=== PATIENT | male | born 1980 | race African-American/Black ===

== ENCOUNTER → 2018-04-01 14:00 | Emergency (ER) | payer BC, OTHER ==
[~2018-04-01 14:00] MED LIST: Ibuprofen TAB* 400 MG PO ONE
--- NOTE | 2018-04-01 15:16 | ED ---
HPI Chest Pain - HPI Summary HPI Summary: This patient is a 37 year old M presenting to [facility] with a chief complaint of sharp right anterior CP since this AM. He endorses SOB secondary to pain, pain radiation to his back, mildly productive cough (sx started and worsened with cough), and sx worse with inspiration. Pt denies fever, rash, and smoking cigarettes. PMHx asthma; rx PRN albuterol. - History of Current Complaint Chief Complaint: EDChestWallPain Time Seen by Provider: 04/01/18 15:00 Hx Obtained From: Patient Onset/Duration: Started Hours Ago, Atraumatic, Still Present Timing: Constant, Lasting Hours Initial Severity: Moderate Current Severity: Moderate Pain Intensity: 7 Pain Scale Used: 0-10 Numeric Chest Pain Location: Right Anterior Chest Pain Radiates: Yes Chest Pain Radiates To:: Back Character: Cough, Productive, Dyspnea at Rest, Sharp/Stabbing Aggravating Factor(s): Deep Breaths, Other: - cough Alleviating Factor(s): Nothing Associated Signs and Symptoms: Positive: Chest Pain, Shortness of Breath, Productive Cough, Back Pain. Negative: Fever - Allergy/Home Medications Allergies/Adverse Reactions: Allergies Allergy/AdvReac Type Severity Reaction Status Date / Time No Known Allergies Allergy Verified 04/01/18 14:32 Home Medications: Home Medications Albuterol inh POWDER (NF) [Proair Respiclick] 1 puff INH DAILY 04/01/18 [ History Confirmed 04/01/18] PMH/Surg Hx/FS Hx/Imm Hx Cardiovascular History: Denies: Hx Pacemaker/ICD Respiratory History: Reports: Hx Asthma GI History: Denies: Hx Ileostomy History: Denies: Hx Dialysis Musculoskeletal History: Denies: Hx Osteoporosis Sensory History: Denies: Hx Legally Blind, Hx Deafness Opthamlomology History: Denies: Hx Legally Blind EENT History: Denies: Hx Deafness Neurological History: Denies: Hx CVA Psychiatric History: Denies: Hx Autism, Hx Schizophrenia - Immunization History Immunizations Up to Date: Yes Infectious Disease History: No Infectious Disease History: Denies: Traveled Outside the [place] in Last 30 Days - Family History Known Family History: Positive: Cardiac Disease, Hypertension, Diabetes - Social History Occupation: Employed Full-time Lives: With Family Alcohol Use: Occasionally Hx Substance Use: Yes Substance Use Type: Reports: Marijuana Substance Use Comment - Amount & Last Used: used 2 days ago Hx Tobacco Use: No Smoking Status (MU): Never Smoked Tobacco Review of Systems Negative: Fever Positive: Chest Pain Positive: Shortness Of Breath, Cough Positive: no symptoms reported Positive: Myalgia - back pain Negative: Rash All Other Systems Reviewed And Are Negative: Yes Physical Exam - Summary Physical Exam Summary: Appearance: Well appearing, no pain distress Skin: warm, dry, reflects adequate perfusion Head/face: normal Eyes: EOMI, BERNA ENT: normal Neck: supple, non-tender Respiratory: CTA, breath sounds present Cardiovascular: RRR, pulses symmetrical Abdomen: non-tender, soft Bowel: present Musculoskeletal: tenderness in right anterior chest, strength/ROM intact Neuro: normal, sensory motor intact, A&Ox3 Triage Information Reviewed: Yes Vital Signs On Initial Exam: Initial Vitals Temp Pulse Resp BP Pulse Ox 97.7 F 74 18 137/84 96 04/01/18 14:01 04/01/18 14:01 04/01/18 14:01 04/01/18 14:01 04/01/18 14:01 Vital Signs Reviewed: Yes Diagnostics - Vital Signs Vital Signs Temp Pulse Resp BP Pulse Ox 04/01/18 14:14 69 147/83 96 04/01/18 14:01 97.7 F 74 18 137/84 96 - Laboratory Result Diagrams: 04/01/18 15:19 04/01/18 15:19 Lab Statement: Any lab studies that have been ordered have been reviewed, and results considered in the medical decision making process. - Radiology CXR Xray Interpretation: No Acute Changes Radiology Interpretation Completed By: Radiologist - No active disease. Dr. Castro has reviewed this report. - EKG 1406 Cardiac Rate: NL - 64 EKG Rhythm: Sinus Rhythm ST Segment: Normal Ectopy: None EKG Interpretation: No acute changes. Re-Evaluation - Re-Evaluation First Eval Re-Evaluation Time: 17:14 Change: Improved Comment: Pt feels better, wants discharge. Doesn't want to stay for 2nd troponin , advised to follow up with PCP for an outpatient stress test. Chest Pain Course/Dx - Course Course Of Treatment: A 37-year-old M presents to the ED with a CC of sharp right anterior CP since this AM. (+) pain with inspiration, pain with cough, mildly productive cough. PMHx asthma. A CXR was (-). An EKG reveals NSR at 64 BPM with no acute changes. In the ED course, pt was given ibuprofen. - Diagnoses Provider Diagnoses: Atypical chest pain Discharge - Sign-Out/Discharge Documenting (check all that apply): Patient Departure - discharge - Discharge Plan Condition: Stable Disposition: HOME Patient Education Materials: Chest Pain (ED) Referrals: [facility] [Provider Group] Additional Instructions: Return to the emergency department for any new or worsening symptoms. Follow up with a primary care physician for an outpatient stress test. - Attestation Statements Document Initiated by Scribe: Yes Documenting Scribe: Johnny Mora Provider For Whom Scribe is Documenting (Include Credential): Dr. Jimi Castro MD Scribe Attestation: Johnny Humphrey, scribed for Dr. Jimi Castro MD on 04/01/18 at 1713.
[2018-04-01 15:32] LABS: ABS Basophils 0.1 10^3/ul (0-0.2); ABS Eosinophils 0.3 10^3/ul (0-0.6); ABS Lymphocytes 2.3 10^3/ul (1.0-4.8); ABS Monocytes 0.4 10^3/ul (0-0.8); ABS Neutrophils 4.3 10^3/ul (1.5-7.7); ABS Nucleated RBC 0 10^3/ul; Eosinophil % 4.5 % (0-6); Hematocrit 41 % (42-52); Lymphocyte % 31.4 % (25-47); Mean Corpuscular HGB Conc 32 g/dl (31-36); Mean Corpuscular Hemoglobin 24 pg (27-31); Mean Corpuscular Volume 75 fL (80-94); Mean Platelet Volume 10.2 um3 (7.4-10.4); Nucleated Red Blood Cells % 0.1; Platelet Count 206 10^3/ul (150-450); Red Blood Count 5.44 10^6/ul (4.00-5.40); Red Cell Distribution Width 15 % (10.5-15); White Blood Count 7.4 10^3/ul (3.5-10.8)
[2018-04-01 15:39] LABS: INR 0.96 (0.77-1.02)
--- NOTE | 2018-04-01 15:45 | RAD ---
INDICATION: Chest pain COMPARISON: None TECHNIQUE: PA and lateral dual-energy views were obtained. FINDINGS: Bones/Soft Tissues: There are no acute bony findings. Cardiomediastinal: The cardiomediastinal silhouette is normal. Lungs: There are no infiltrates. There is mild hyperinflation. Pleura: There are no pleural effusions. Other: None IMPRESSION: NO ACTIVE DISEASE.
[2018-04-01 15:52] LABS: EGFR Non-African American 87.2 (>60)
[2018-04-01 17:24] VITALS: BP 127/74
== END | disposition home or self-care (01) ==
LOC: ED 14:00
DX: R07.89 Other chest pain (principal); R06.02 Shortness of breath; R05 Cough; M54.9 Dorsalgia, unspecified; J45.909 Unspecified asthma, uncomplicated; Z82.49 Family history of ischemic heart disease and other diseases of the circulatory system; Z83.3 Family history of diabetes mellitus
CPT/HCPCS: 36415; 71046; 80053; 83605; 83880; 84484; 85025; 85379; 85610; 85730; 93005; 99283; A9270-GY